=== PATIENT | female | born 1975 | race American Indian/Alaskan Native ===

== ENCOUNTER 2021-10-02 14:06 | Emergency (ER) | payer OTHER ==
[2021-10-02 17:29] VITALS: BP 198/122
[2021-10-02] MEDS ORDERED: KETOROLAC 10 MG TAB PO ONE (18:10)
[2021-10-02] MEDS ORDERED: CYCLOBENZAPRINE 10 MG TAB PO ONE (18:10)
[2021-10-02] MEDS ORDERED: predniSONE 20 MG TAB PO ONE (18:11)
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
== END 2021-10-02 18:33 | disposition home or self-care (01) ==
LOC: ED 14:06
DX: M54.2 Cervicalgia (principal); Z79.899 Other long term (current) drug therapy; V87.7XXA Person injured in collision between other specified motor vehicles (traffic), initial encounter; Y93.89 Activity, other specified; Y92.89 Other specified places as the place of occurrence of the external cause; Y99.8 Other external cause status
CPT/HCPCS: 99282